=== PATIENT | male | born 1985 | race Caucasian/White ===

== ENCOUNTER 2019-08-28 08:30 | Emergency (ER) | payer BC ==
[~2019-08-28] VITALS: Ht 172.7 cm; Wt 72.6 kg
[2019-08-28] MEDS ORDERED: ONDANSETRON ODT 4 MG TAB.RAPDIS ONE (08:41)
[2019-08-28] MEDS ORDERED: HYDROMORPHONE 1 MG/1 ML DISP.SYRIN ONE ×2 (08:41→09:34)
[2019-08-28] MEDS ORDERED: LIDOCAINE HCL 2% 20 ML VIAL ONE (08:41)
[2019-08-28] MEDS ORDERED: ONDANSETRON ODT 4 MG TAB.RAPDIS SL ONE (08:45)
[2019-08-28] MEDS ORDERED: LIDOCAINE HCL 2% 20 ML VIAL TP ONE (08:45)
[2019-08-28] MEDS ORDERED: HYDROMORPHONE 1 MG/1 ML DISP.SYRIN IM ONE ×2 (08:45→09:45)
--- NOTE | 2019-08-28 10:04 | NUR ---
patient was seen by . Xrays and sutures complete. Wrapped with sterile gauze and place splint. DC, Rx and follow up instructions given and explained to patient who states he understands all instructions.
--- NOTE | 2019-08-28 10:05 | NUR ---
patient instructed not to drive and given precautions of Dilaudid. States his will drive
== END 2019-08-28 10:06 | disposition home or self-care (01) ==
LOC: ER 08:30
PROC: 0HQGXZZ Repair Left Hand Skin, External Approach (ICD-10-PCS; principal; 2019-08-28)
DX: S67.197A Crushing injury of left little finger, initial encounter (principal); S62.637B Displaced fracture of distal phalanx of left little finger, initial encounter for open fracture; W20.8XXA Other cause of strike by thrown, projected or falling object, initial encounter; Y93.B3 Activity, free weights; Y92.89 Other specified places as the place of occurrence of the external cause
CPT/HCPCS: 12042; 73140; 96372 ×2; 99284; J1170 ×2; J3490; A4217; A4663; Q0162

== ENCOUNTER 2019-08-30 09:56 | Emergency (ER) | payer BC ==
[~2019-08-30] VITALS: Ht 172.7 cm; Wt 72.6 kg
[2019-08-30] MEDS ORDERED: MUPIROCIN 2% OINT 22 GM TUBE ONE (10:27)
--- NOTE | 2019-08-30 10:29 | NUR ---
Patient discharged to home in stable condition. Written and verbal after care instructions given to patient. Patient verbalized understanding & compliance of instructions. Stressed and emphasis were given for follow up with a hand surgeon (Dr Lambert) or return to ER for worsening s/s.
[2019-08-30] MEDS ORDERED: MUPIROCIN 2% OINT 22 GM TUBE TP ONE (10:30)
== END 2019-08-30 10:29 | disposition home or self-care (01) ==
LOC: ER 09:56
DX: S62.637D Displaced fracture of distal phalanx of left little finger, subsequent encounter for fracture with routine healing (principal); W23.0XXD Caught, crushed, jammed, or pinched between moving objects, subsequent encounter
CPT/HCPCS: A4217; A4663